=== PATIENT | female | born 1980 | race Caucasian/White ===

== ENCOUNTER 2024-09-04 19:00 | Emergency (ER) | payer SELFPAY ==
[2024-09-04 19:21] VITALS: BP 128/86; PULSE 73; RESP 16; TEMP 37.3; O2SAT 99
[2024-09-04 19:43] LABS: EDCOVIDSCREEN Negative (Negative); EDINFLUASCREEN Negative (Negative); EDINFLUBSCREEN Negative (Negative)
--- NOTE | 2024-09-04 19:50 | ED_ITS ---
HPI - URI/Sore Throat General Chief Complaint: Upper Respiratory Infection Stated Complaint: BODY ACHES/TIRED/NAUSEA Time Seen by Provider: 09/04/24 19:50 Source: patient, RN notes reviewed and old records reviewed Mode of arrival: ambulatory Limitations: no limitations History of Present Illness HPI Narrative: 44 year old female who presents to [facility] care with complaints of having some body aches, headaches nausea and diarrhea and dry cough starting on Tuesday. Patient reports that she had diarrhea only on Tuesday and it has resolved but continues with nausea and cough. Patient reports that she needs to get checked to make she is not cotagious MD elicited complaint: other (body aches, nausea, cough,chills some diarrhea) Onset (ago): day(s) (4) Severity: moderate Description of mucous: clear Able to tolerate fluids by mouth: Yes Treatments prior to arrival: acetaminophen and other (cough drops tylenol) Related Data Allergies Allergy/AdvReac Type Severity Reaction Status Date / Time No Known Allergies Allergy Verified 09/04/24 19:56 Review of Systems Review of Systems: CONSTITUTIONAL: Denies fever, some chills, or sweats.fatigue EYES: Denies visual changes, redness, or discharge. ENT: reports some rhinorrhea, congestion,no sore throat, no otalgia. CARDIOVASCULAR: Denies chest pain, palpitations, or edema. RESPIRATORY: Reports some cough denies dyspnea. GASTROINTESTINAL: Denies abdominal pain, positive for nausea, no vomiting, resolved diarrhea. GENITOURINARY: Denies dysuria or hematuria. SKIN: Denies rash or itching. MUSCULOSKELETAL: Denies back pain, joint pain, or myalgia. NEUROLOGIC: Reports some headache, no numbness, or weakness. PSYCHIATRIC: Denies anxiety or depression. All systems reviewed & are unremarkable except as noted in HPI and below PMFSH Social History Social History (Updated 09/05/24 @ 22:37 by Mayela Ibrahim NP) Smoking status: Never smoker Alcohol intake: unknown Substance use: unknown Living arrangements: with family Gender identity (if verbalized by the patient): Female Comments At time of signature, agree with nursing past medical, surgical, social and family history. There is no relevant family history pertinent to the presenting complaint Exam Narrative: GENERAL: Well-appearing, well-nourished, and in no acute distress. HEAD: Normocephalic, atraumatic. EYES: PERRLA and EOMI. ENT: Nares clear, positive rhinorrhea no epistaxis. Mucous membranes moist, TM;snormal, throat pink with no swelling. NECK: Supple.no lymphadenopathy CHEST: Clear to auscultation. No respiratory distress. some intermittent cough noted,SAO2 99% on room air HEART: Regular rate and rhythm. No murmur heard. Normal peripheral pulses. ABDOMEN: Soft, nontender, nondistended, normal active bowel sounds. states continued nausea EXTREMITIES: Normal range of motion. No edema. SKIN: Warm, dry, no rash. NEURO: No focal deficits. Alert and oriented x3. Course Course Emergency Course: Patient is aware of diagnosis, understands and agrees to treatment plan.? Anticipatory guidance given.? Patient agrees to follow-up as directed and is aware of reasons to seek care at the emergency department. Portions of this record may have been created with voice recognition software Level of Care: Express Care Visit Vital Signs Vital signs: Vital Signs Temperature 37.3 C 09/04/24 19:21 Pulse Rate 73 09/04/24 19:21 Respiratory Rate 16 09/04/24 19:21 Blood Pressure 128/86 09/04/24 19:21 Pulse Oximetry 99 09/04/24 19:21 Temperature 37.3 C 09/04/24 19:21 Pulse Rate 73 09/04/24 19:21 Respiratory Rate 16 09/04/24 19:21 Blood Pressure 128/86 09/04/24 19:21 Pulse Oximetry 99 09/04/24 19:21 Reviewed MDM - URI/Sore Throat Differential Diagnosis Differential diagnosis: Likely upper respiratory infection, viral infection, influenza and other (cough ,COVID) Medical Records Attestation: I reviewed the patient's medical records. Lab Data Attestation: I reviewed the patient's lab results. Lab results narrative: Influenza A negative, Influenza B negative, COVID antigen negative Labs: Lab Results 09/04/24 Range/Units 19:41 POC Influenza A Ag Negative (Negative) POC Influenza B Ag Negative (Negative) POC SARS CoV-2 Ag Negative (Negative) Critical Care Time Critical Care Time Critical Care Time: No Discharge Plan Discharge Clinical Impression: Viral syndrome Patient Disposition: Home, Self-Care Condition: Stable Instructions: Antibiotic Form Additional Instructions: Increase fluids especially juices and water Yrdc-[id number] cough and cold medicine of your choice for your symptoms Zofran for nausea Tylenol or ibuprofen for any fever pain Steroids as directed--take with food heat to the face 20-30 minutes 4-6 times a day for pain Salt water gargles, throat lozenges or throat sprays as desired you tested negative for COVID and foot If your symptoms persist, change or worsen significantly before you can contact your personal physician then please, without delay, go to the emergency department for further evaluation. Follow-up with PCP in 7-10 days or sooner if needed Follow up with PCP soon in regards to your blood pressure which is elevated above threshold for referral. Blood pressure above 120/80 may indicate pre- hypertension. 128/86 minimal elevation Patient Language: Croatian Prescriptions: New ondansetron 4 mg tablet,disintegrating 4 mg PO Q6H PRN (Reason: nausea and vomiting) Qty: 14 0RF Rx Instructions: whatever is covered by insurance methylprednisolone [Medrol (Chan)] 4 mg tablets,dose pack See Rx Instructions .ROUTE .COMPLEX Qty: 21 0RF Rx Instructions: orally per package directions Follow-up/Referrals: UNKNOWN,DOCTOR [Primary Care Provider] - Time of Disposition: 19:56 Quality Ramandeep Coma Scale Eyes: Open Verbal: Oriented and Alert Motor: Follows Commands Ramandeep Coma Total Score: 15
== END 2024-09-04 20:00 | disposition home or self-care (01) ==
PROVIDERS: Emergency Provider Registered Nurse
DX: B34.9 Viral infection, unspecified (principal); Z20.822 Contact with and (suspected) exposure to COVID-19
CPT/HCPCS: 87426; 87804; 99203; G0463